=== PATIENT | female | born 1955 | race Caucasian/White ===

== ENCOUNTER 2021-03-23 09:32 | Day surgery (SDC) | payer SELFPAY, OTHER ==
--- NOTE | 2021-03-22 12:24 | EKG12_ITS ---
Test Reason : PREOP Blood Pressure : / mmHG Vent. Rate : 071 BPM Atrial Rate : 071 BPM P-R Int : 136 ms QRS Dur : 082 ms QT Int : 402 ms P-R-T Axes : 051 055 060 degrees QTc Int : 436 ms Normal sinus rhythm Normal ECG Confirmed by ANJALI JORDAN, EROS ([id number]), editorial clerk NICANOR GRAHAM ([id number]) on 03/23/2021 7:45:56 AM Referred By: Cipriano Nava Confirmed By:EROS ALBA MD
[2021-03-22 13:22] LABS: Absolute Lymphocyte Count 1.08 X10^3/uL (0.83-4.51); Absolute Neutrophil Count 3.9 X10^3/uL (2.0-7.7); Basophil# 0.01 X10^3/uL; Basophil% 0.2 % (0-1); Eosinophil# 0.09 X10^3/uL; Eosinophils% 1.7 % (0-5); Hematocrit 39.8 % (37-47); Hemoglobin 12.9 g/dL (12.0-15.0); Lymphocyte # 1.08 X10^3/ul (0.83-4.51); Lymphocyte % 20.1 % (19-41); Mean Corp Hgb Conc 32.4 g/dL (32-36); Mean Corpuscular Hgb 28.9 pg (27.0-32.0); Mean Corpuscular Volume 89.2 fL (81-99); Monocyte# 0.31 X10^3/uL; Monocyte% 5.8 % (0-10); NRBC Flagged by Analyzer 0 % (0-5); Neutrophil # 3.87 X10^3/uL (2.7-7.7); Platelet Count 223 K/mm3 (150-450); RBC Distribution Width CV 13.2 % (11.6-14.6); RBC Distribution Width SD 43.8 fl (35.1-43.9); Red Blood Count 4.46 M/mm3 (4.2-5.4); White Blood Count 5.4 K/mm3 (4.4-11.0)
[2021-03-22 13:49] LABS: ALB/GLOB Ratio 1.1 RATIO (0.9-2.4); AST(SGOT) 14 U/L (15-37); Alanine Aminotransfer ALT/SGPT 17 U/L (13-56); Albumin, Serum 3.8 g/dL (3.2-5.0); Alkaline Phosphatase 55 U/L (45-117); Anion Gap 5 (5-15); BUN 10 mg/dL (7-18); BUN/Creat Ratio 11.9 RATIO (10-20); Calcium,Total 9.2 mg/dL (8.5-10.1); Chloride 105 mmol/L (98-107); Creatinine, Serum 0.84 mg/dL (0.55-1.02); EST Glomerular Filtration Rate 72 mL/min (>60); Est Glom Filt Rate - Afr Amer 87 mL/min (>60); Globulin 3.4 g/dL (2.2-4.2); Glucose 106 mg/dL (74-106); Lipase 110 U/L (73-393); Potassium 4.2 mmol/L (3.5-5.1); Protein, Total 7.2 g/dL (6.4-8.2); Sodium Level 141 mmol/L (136-145)
[2021-03-23] VITALS (8 sets, daily range): BP systolic 120–149; BP diastolic 71–78; PULSE 49–77; RESP 16–20; TEMP 35.8–37.1; O2SAT 92–100; BMI 21.6
--- NOTE | 2021-03-23 10:24 | HP.PCM_ITS ---
History and Physical Date of Admission: 03/23/21 Assessment and Plan Assessment and Plan (1) Cholelithiasis with chronic cholecystitis: Status: Chronic Qualifiers: Cholelithiasis location: gallbladder Biliary obstruction: without biliary obstruction Qualified Code(s): K80.10 - Calculus of gallbladder with chronic cholecystitis without obstruction Comment: Intake Vital Signs 03/22/21 11:01 Height 5 ft 2.5 in Weight: 126 lb BMI 22.6 BP 172/84 H Blood Pressure Location Lt brachial Position Sitting Respiration 18 Pulse 94 Temp 97.5 F L Temp Source Temporal Intake Visit Reasons: Amb Documentation Chief Complaint: gallbladder issues Balloon Dipper Required: No Is patient in pain?: Yes (epigastric and RUQ abdomen) Allergies No Known Allergies Allergy (Verified 03/22/21 11:02) Medications aspirin 81 mg tablet,delayed release 81 mg PO DAILY 03/08/21 [History Confirmed 03/22/21] coenzyme Q10 10 mg capsule 10 mg PO ONCE 03/08/21 [History Confirmed 03/22/21] famotidine 20 mg tablet 20 mg PO DAILY #90 tab 03/08/21 [Rx Confirmed 03/22/21] multivitamin 1 tab PO DAILY 03/08/21 [History Confirmed 03/22/21] PFSH Medical History Abdominal pain Acid reflux Emphysematous cholecystitis High blood pressure Kidney stones Surgical History History of ovarian cyst Family History Brother CVA (cerebral vascular accident) Father CVA (cerebral vascular accident) Parkinson disease Sister CVA (cerebral vascular accident) Social History Smoking Status: Never smoker alcohol intake: never substance use type: does not use what type of physical activity do you participate in: none HPI HPI HPI: NOY REBOLLAR, is a 65 F who presents to the office today for ROS General General: Yes weight change; No appetite, fatigue, colon cancer, breast cancer or weakness HEENT HEENT: No difficulty swallowing, eye injury, eye surgery, swollen glands or hoarseness Endo Endocrine: No thyroid disease, diabetes mellitus, thyroid cancer, Hair loss, heat intolerance or cold intolerance Skin Skin: No rash or changing moles Breast Breast: No left breast lump, right breast lump, nipple discharge, breast pain, abnormal mammogram, abnormal US or breast enlargement Musc Musculoskeletal: No back problems, arthritis, rheumatoid arthritis, gout or joint pain Cardio Cardiovascular: No murmur, pacemaker, heart disease, atrial fibrillation, high blood pressure, heart attack, heart stent, palpitations, shortness of breat with exertion or chest pain Psych Psychiatric: No depression, anxiety or hearing voices Resp Respiratory: No shortness of breath, No sleep apnea, No cough, No COPD, No asthma, No emphysema and No wheezing Gastro Gastrointestinal: No abdominal pain, No nausea or vomiting, No diarrhea, Yes constipation, No blood in stool, Yes acid reflux, No hemorrhoids, No ulcers, Yes gallbladder problem and No black,tarry stools Adal Hematologic: No blood thinners, No blood disorders, No bleeding, No anemia and No blood clots Neuro Neurologic: No system reviewed and no additional complaints, except as documented, No as per HPI, No abnormal gait, No abnormal hearing, No abnormal movements, No abnormal speech, No behavioral changes, No burning sensations, No confusion, No convulsions, No disequilibrium, No dizziness, No localized weakness, No frequent falls, No headache(s), No lack of coordination, No loss of vision, No memory loss, No numbness, No other visual disturbances, No radicular pain, No restless legs, No sensory deficit, No syncope, No tingling, No tremor(s), No weakness and No other Plan Details Other Orders: Orders: Comprehensive Metabolic Profil Today R10.9, Z01.818 Lipase Today R10.9, Z01.818 CBC W/Diff, Automated Today R10.9, Z01.818 03/22/21 [id number]<Electronically signed by Cipriano Nava MD>Date Cipriano Nava MD cc: ANGELINA Rebollar; Dr. Jean Kohli, DO ~*Signed Intake Intake Visit Reasons: GALLBLADDER Chief Complaint: gallbladder issues Allergies No Known Allergies Allergy (Verified 03/22/21 11:02) [facility] Medical History (Updated 03/22/21 @ 11:[address] Cipriano Nava MD) Abdominal pain Acid reflux High blood pressure Kidney stones Pre-op testing Surgical History History of ovarian cyst Family History Brother CVA (cerebral vascular accident) Father CVA (cerebral vascular accident) Parkinson disease Sister CVA (cerebral vascular accident) Social History Smoking Status: Never smoker alcohol intake: never substance use type: does not use what type of physical activity do you participate in: none HPI HPI HPI: NOY REBOLLAR, is a 65 F who presents to the office today for surgical consultation regarding abdominal pain. The patient has been ill for at least 6 months. She has had a greater than 20 pound weight loss. Claims that she cannot eat. She has had no fever. About 6 to 8 weeks ago she had an episode of severe nausea and vomiting. She has got chronic constipation but does not notice any bright red blood per rectum or melena. She has been seen multiple times by her chiropractor. She is on various medications of which she did not bring with her today. One of the meds is supposed to dissolve gallstones her only previous abdominal surgery was an ovarian cystectomy 2013. She remains very uncomfortable in the epigastric right upper quadrant area. No fever. She had a CT scan performed at [facility] on March 15, 2021. There was concerned about an emphysematous gallbladder. The patient presents to my office as a walk-in appointment today wondering what she should have done. She states that she has still been able to work. She states that the pain has been progressively worsening but she has not had any acute change in severity or over the past weeks Exam Const General: cooperative and no acute distress Nutritional Appearance: average body habitus Orientation: alert and awake HENAR Head: normal to inspection Eyes General: appearance normal, both eyes and all related structures Neck Neck: normal visual inspection Resp Effort & Inspection: normal respiratory effort Auscultation: clear to auscultation bilaterally Cardio Rate: regular rate Rhythm: regular rhythm GI Palpation: soft and no hepatosplenomegaly Auscultation: normal bowel sounds Musc Cervical Spine: normal cervical lordosis Skin General: no rashes or lesions noted Neuro General: patient alert and patient awake Extrem General: no calf tenderness Psych Affect: normal affect Assessment and Plan Assessment and Plan (1) Cholelithiasis with chronic cholecystitis: Status: Chronic Qualifiers: Cholelithiasis location: gallbladder Biliary obstruction: without biliary obstruction Qualified Code(s): K80.10 - Calculus of gallbladder with chronic cholecystitis without obstruction Plan: The patient has not had any laboratory obtained. I recommend that we obtain a CMP CBC with differential lipase and a Covid test. I have offered the patient a laparoscopic cholecystectomy with selective cholangiography and I discussed technique, benefit, risk and alternatives. I have reviewed the CT images from [facility] with our local radiologist who feels the images demonstrate anechoic gallstones and not air. That would fit her clinical presentation better as her illness appears to be more of her prolonged chronic disease. I have cautioned the patient however about possible enteric fistula. No guarantees success offered. The patient is well aware that conversion to an open approach may be required. She has had an opportunity to ask and have questions answered. She is interested in proceeding with definitive management. Copy: Dr. Jean Kohli and Rigoberto Rebollar, PECAN MALLOW DIPPER CMP and CBC were unremarkable. Cipriano Nava M.D., F.A.C.S.
[2021-03-23] MEDS: Lactated Ringers 1,000 ML 100 ML IV (11:05)
--- NOTE | 2021-03-23 11:54 | EX.PCM.DISCH ---
Discharge Instructions Procedure General Surgery Diet Discharge Diet: Light diet - advance as tolerated (if you have questions about your diet instructions, please talk to you doctor.) Activity Discharge Activity: May Not Drive (for 3-5 days or while taking narcotic pain medicine.) May shower in (days): 1 Lifting Restrictions: 10 pounds Dressing / Incision Call your doctor if your incision/area has: Continuous Slow Oozing, Sudden Increased Bleeding, Increased Pain/ Swelling, Increased Redness and Foul Smelling Discharge Call your doctor if you observe: Fever of 101 or Higher Suture Line Care: Avoid Pulling/Pushing and Avoid Pinching/Bending Additional Dressing/Incision Instructions:: Change or remove dressing in 4 days. Leave steri-strips in place for 1 week. Follow Up Care Please Follow Up With: Cipriano Nava MD When: Call [phone] to make an appointment to be seen in about 10 days. Test Results: Test results from this visit will be discussed in further detail at your follow-up appointment, if applicable. Discharge Plan Admission Attending Provider: Cipriano Nava Primary Care Provider: Jean Kohli Discharge Orders/Prescriptions Prescriptions: No Action aspirin 81 mg tablet,delayed release (DR/EC) 81 mg PO DAILY RF: 0 multivitamin Tablet 1 tab PO DAILY RF: 0 coenzyme Q10 [Co Q-10] 10 mg capsule 10 mg PO ONCE RF: 0 famotidine [Pepcid] 20 mg tablet 20 mg PO DAILY Qty: 90 RF: 0 Other Ambulatory Orders: 12 Lead EKG (Routine) Location: None Selected Ordered By: Dr. Carlos Evans
--- NOTE | 2021-03-23 12:00 | RAD_ITS ---
STUDY: INTRAOPERATIVE CHOLANGIOGRAM. REASON FOR EXAM: Female, 65 years old. Laparoscopic cholecystectomy. FLUOROSCOPY TIME (if supplied): ( 21 seconds ) minutes/seconds. A cine loop of 150 images was submitted. TECHNIQUE: An intraoperative cavagram was performed by the surgeon. Imaging was submitted. COMPARISON: None. FINDINGS: The common bile duct is not dilated. No intraluminal filling defect is seen. There is free flow of contrast into the duodenum. The visualized intrahepatic biliary ducts are unremarkable. RAD/Cholangiogram/ O R,Initial IMPRESSION: Unremarkable intraoperative cholangiogram. Electronically Signed: Jerel Pinedo MD at 8:17 EDT , Service support ,
--- NOTE | 2021-03-23 12:00 | GALL_PTH ---
PATIENT: NOY BROWN [place] [facility] [place][id number] AGE/SX: 65/F ROOM: RE03/23/[address]: Dr. Cipriano Nava MD : [id number] BED: DIS: 03/23/2021 SPEC #: [id number] RECD: 03/23/21 14:07 STATUS: TASHI ESME #: [id number] JAMES: 03/23/21 12:[address]: Cipriano Nava DEPT: SURGICAL PATHOLOGY RECD BY: Karen Anderson ENTERED: 03/24/21 08:58 SP TYPE: ILANA TRIPLETT DR: Dr. Jean Kohli, DO Tissues: Gallbladder, NOS Procedures: Surgery Specimen Level III HEADER OPERATION: Laparoscopic cholecystectomy with IOC PRE-OP DIAGNOSIS: Cholelithiasis with chronic cholecystitis TISSUE SUBMITTED: Gallbladder MICROSCOPIC DIAGNOSIS Gallbladder, cholecystectomy: Chronic cholecystitis and cholelithiasis. AM:rosendo 03/27/2021 MICROSCOPIC DESCRIPTION Slides are reviewed. GROSS DESCRIPTION Received is one container labeled with the patient's name and designated gallbladder. The specimen consists of a gallbladder measuring 11 cm in length and up to 3.5 cm in diameter. The external surface is pink-lópez, smooth and glistening for the most part. Focally it is granular, hemorrhagic and contains cautery artifact. The gallbladder contains green-yellow mucoid bile and multiple, multifaceted, greenish, yellow to brownish-black stones measuring in aggregate 7 x 7 x 2.5 cm and 0.5 to 2 cm in greatest dimension. The mucosa is bile-stained and without any mass lesions. The gallbladder wall measures up to 0.1 cm in thickness. Registered Travel Nurse sections from the gallbladder and the cystic duct are submitted in one cassette. / SJ:rosendo 03/24/21 TC:3 CPT: 19448
[2021-03-23] MEDS: Cefazolin 2 GM in 0.9% Normal Saline 100 ML IV (12:34)
--- NOTE | 2021-03-23 13:33 | OP.PCM_ITS ---
Problems Associated Problem List Diagnoses (1) Cholelithiasis with chronic cholecystitis: Report of Operation Date of Procedure: 03/23/21 Pre-Operative Diagnosis: Chronic cholecystitis cholelithiasis Post-Operative Diagnosis: Same Surgery/Procedure Performed:: Laparoscopic cholecystectomy with cholangiograms Description of Surgical Findings:: Timeout informed consent was obtained. [age]-year-old female was taken to the operating placed on the table underwent general endotracheal intubation esthesia. Ancef 2 g given intravenously. The abdomen was sterilely prepped and draped. 0.5% Marcaine was used as a local anesthetic. Throughout the procedure total 30 cc was used. Skin sites were preanesthetized. A vertical infraumbilical incision was created holding sutures of 0 Vicryl placed varies needle inserted saline drop test performed the abdomen was insufflated with CO2 to a pressure of 10 mmHg pressure. 10 mm trocar inserted. 10 mm laparoscope inserted. No evidence of any trocar injuries. Under direct visualization 5 mm ports were placed in the epigastric right upper quadrant right lateral upper quadrant areas. The abdomen was inspected there was diffuse distention of the colon throughout. No particular etiology. There was no evidence of any trocar injuries. The gallbladder wall appeared to be of normal thickness. The gallbladder was distracted blunt dissection was instituted at the infundibulum until clearly the critical view was achieved. The cystic artery cystic duct identified. He month block clip was placed on the cystic duct incision made in the cystic duct and through a 14-gauge Angiocath cholangiogram catheter was inserted. Fluoroscopically controlled cholangiograms were obtained demonstrating an enlarged common bile duct but free flow into the small bowel no evidence of any intraluminal filling defect. The flange Keaton catheter was removed 2 Hem-o-yaritza clips were placed on the cystic duct stump prior to transecting it. The cystic artery was secured with 2 hemolock clips proximally 1 distally prior to transecting it. The gallbladder was dissected free from the liver bed. Complete hemostasis was intact. Gallbladder was released and the gallbladder was immediately placed within a retrieval bag. The right upper quadrant was aspirated and irrigated free of excess fluid. There were multiple stones noted in the gallbladder. Slight enlargement of the infraumbilical skin and fascial incision was required for removal. The abdomen was allowed to deflate of the CO2 through an antiviral valve. The fascia at the umbilicus was approximated with a running 0 Vicryl. Skin edges approximated opted for Monocryl subdermal stitches. Steri-Strips Telfa OpSite dressings applied. Sponge and instrument and needle counts were reported to the surgeon be correct. Specimen gallbladder. Drains none. Blood loss minimal. The patient was taken to recovery area in satisfactory condition without apparent complication. Cipriano Nava M.D., F.A.C.S. Surgeon: Cipriano Nava Type of Anesthesia: General Anesthesiologist: Nicole Romero
[2021-03-23] MEDS: Acetaminophen 325 MG Tablet 650 MG PO ×2 (16:55→16:58)
== END 2021-03-23 17:30 | disposition home or self-care (01) ==
LOC: SDC 09:36 → AC 09:37
PROVIDERS: PCP Family Medicine; Referring Provider Surgery; Visit Provider Surgery
PROC: (CPT 47610; principal; 2021-03-23 11:40)
DX: K80.10 Calculus of gallbladder with chronic cholecystitis without obstruction (principal); I10 Essential (primary) hypertension; K21.9 Gastro-esophageal reflux disease without esophagitis; Z87.442 Personal history of urinary calculi; Z79.82 Long term (current) use of aspirin; Z79.899 Other long term (current) drug therapy
CPT/HCPCS: 00790; 47563; 36415; 74300; 76000; 80053; 83690; 85025; 87426; 88304; 93005; C9803; J7120; J2405